=== PATIENT | male | born 1965 | race Caucasian/White ===

== ENCOUNTER → 2018-03-08 | Day surgery (SDC) | payer BC ==
[~2018-03-08] MED LIST: Propofol 200 MG/20 ML SDV IV ONE
[2018-03-08] MEDS: Lactated Ringers 1,000 ML IV SCH (09:13)
--- NOTE | 2018-03-08 13:56 | OR ---
DATE OF OPERATION: 03/08/2018 PREOPERATIVE DIAGNOSIS: SCREENING COLONOSCOPY. POSTOPERATIVE DIAGNOSIS: SCREENING COLONOSCOPY. SURGEON: Ganesh Valentin MD PROCEDURE: FULL-LENGTH COLONOSCOPY WITH SNARE POLYPECTOMY X1, FORCEPS POLYP REMOVAL X1. ANESTHESIA: EQUITIES ANALYST. COMPLICATIONS: None. SPECIMEN: 1. Villous adenoma in cecum. 2. Sessile polyps, sigmoid colon. FINDINGS: 1. Full-length colonoscopy. 2. Marginal prep. 3. Tubulovillous adenoma of cecum. 4. Sessile adenoma, mid sigmoid colon. RECOMMENDATIONS: Follow up colonoscopy in two years pending path report. INDICATIONS: The patient was in for a physical. He has not had a prior colonoscopy. He was sent by Michelle Mancilla PA-C for screening. DESCRIPTION OF PROCEDURE: The patient was prepped and draped, placed in the left lateral decubitus position. A lubricated Olympus colonoscope was inserted and with relative ease, advanced to the cecum. We were able to directly visualize the ileocecal valve and appendiceal orifice. The bowel prep was fine. Just outside the cecal pouch on the backside of the ileocecal valve, the patient had a tubulovillous adenoma, less than 1 cm, but greater than 0.5 cm in size. It was very difficult to get to it. We were able to get a small snare around it and remove it, suction into polyp trap #1 without any complication. Resolution of bleeding was spontaneous. The rest of the ascending and transverse colons appeared benign. No signs of any lesions in the descending colon. The sigmoid area had once a flat sessile polyp around 45 cm, with insufflation and flattened out quite a bit, we were able to remove it, with three cold forceps biopsies. The sigmoid itself and rectosigmoid junction showed no other signs of polyps, mass, ulceration, or bleeding sites. No vascular abnormalities or signs of colitis. There were no significant diverticula. The rectal vault was benign. Retroflexion of scope in the rectum showed no anal lesions. Air was suctioned and scope removed without complication. NICOLE/JABARI /[id number]
== END ==
LOC: CC.SDS 08:41
PROVIDERS: ATTEND Family Medicine
DX: Z12.11 Encounter for screening for malignant neoplasm of colon (principal); D12.0 Benign neoplasm of cecum; D12.5 Benign neoplasm of sigmoid colon; E78.5 Hyperlipidemia, unspecified; I10 Essential (primary) hypertension; E11.9 Type 2 diabetes mellitus without complications; Z79.4 Long term (current) use of insulin; Z79.82 Long term (current) use of aspirin; Z79.899 Other long term (current) drug therapy
CPT/HCPCS: 82962; J2704; J7120

== ENCOUNTER → 2020-04-02 | Day surgery (SDC) | payer BC ==
[~2020-04-02] MED LIST changes: +Ketamine 200 MG/20 ML MDV ONE; +Lactated Ringers 1,000 ML IV SCH; -Propofol 200 MG/20 ML SDV IV ONE; +Propofol 200 MG/20 ML SDV ONE; +fentaNYL 100 MCG/2 ML SDV ONE
--- NOTE | 2020-04-02 09:23 | OR ---
DATE OF OPERATION: 04/02/2020 PREOPERATIVE DIAGNOSIS: HISTORY OF POLYPS. POSTOPERATIVE DIAGNOSIS: HISTORY OF POLYPS. SURGEON: Ganesh Valentin MD PROCEDURE: SURVEILLANCE COLONOSCOPY WITH FORCEPS POLYP REMOVAL X3. ANESTHESIA: MAC. COMPLICATIONS: None. SPECIMEN: Three small sessile polyps, see report. FINDINGS: 1. Full-length colonoscopy. 2. Sessile polyps x3, all 3 to 4 mm or less. RECOMMENDATIONS: Followup colonoscopy in 5 years. INDICATIONS: The patient had a prior colonoscopy 2 years ago, where he had a villous adenoma removed from the cecal region along with another tubular adenoma. We recommended a 2-year followup. DESCRIPTION OF PROCEDURE: The patient was prepped and draped and placed in the left lateral decubitus position. A lubricated Olympus colonoscope was inserted and easily advanced to the cecum. Direct visualization of the ileocecal valve and the appendiceal orifice was accomplished. The bowel prep was marginal. We were able to irrigate and suction most stool from the colon, although the patient had quite a bit. Certainly, smaller lesions possibly could have been missed. Upon withdrawal, the region of the backside of the ileocecal valve showed no sign of any polyp recurrence from his prior snare removal site. The rest of the ascending colon was also benign. In the proximal transverse colon, the patient had a very small flat sessile polyp approximately 3 mm removed in its entirety with 2 cold forceps biopsies. The rest of the transverse colon was benign. No lesions in the descending area. In the mid and distal sigmoid colon, the patient had 2 small polyps, both flat, both removed with forceps biopsies x2 in their entirety, each was approximately 3 to 4 mm. There were no other polyps, masses, ulcerations, bleeding sites, vascular abnormalities, or signs of diverticula. The rectal vault was benign. Retroflexion showed no perianal lesions. Air was suctioned and the scope removed without complication. NICOLE/JABARI /[id number]
== END ==
LOC: CC.SDS 06:50
PROVIDERS: ATTEND Family Medicine
DX: Z12.11 Encounter for screening for malignant neoplasm of colon (principal); D12.3 Benign neoplasm of transverse colon; D12.5 Benign neoplasm of sigmoid colon; E11.9 Type 2 diabetes mellitus without complications; I10 Essential (primary) hypertension; E78.5 Hyperlipidemia, unspecified; E66.9 Obesity, unspecified; Z79.899 Other long term (current) drug therapy; Z68.33 Body mass index [BMI] 33.0-33.9, adult; Z79.4 Long term (current) use of insulin
CPT/HCPCS: J2704; J3010; J7120

== ENCOUNTER 2023-08-31 15:26 | Observation (INO) | payer BC ==
[2023-08-31 15:51] LABS: BASOPHILS ABSOLUTE AUTO 0.04 10^3/uL (0.00-0.50); BASOPHILS PERCENT AUTO 0.5 % (0-1); EOSINOPHILS ABSOLUTE AUTO 0.11 10^3/uL (0.00-1.50); EOSINOPHILS PERCENT AUTO 1.5 % (0-6); HEMATOCRIT 46.7 % (42.0-52.0); HEMOGLOBIN 16.3 g/dL (14.0-18.0); IMMATURE GRAN ABSOLUTE AUTO 0.01 10^3/uL (0.00-0.49); IMMATURE GRAN PERCENT AUTO 0.1 % (0.0-4.9); LYMPHOCYTES ABSOLUTE AUTO 2.12 10^3/uL (0.60-5.00); LYMPHOCYTES PERCENT AUTO 28.1 % (24-44); MEAN CORPUSCULAR HEMOGLOBIN 30.1 pg (27.0-32.0); MEAN CORPUSCULAR HGB CONC 34.9 g/dL (32.0-36.0); MEAN CORPUSCULAR VOLUME 86.3 fL (83.0-97.0); MONOCYTES ABSOLUTE AUTO 0.52 10^3/uL (0.00-1.50); MONOCYTES PERCENT AUTO 6.9 % (0-10); NEUTROPHILS ABSOLUTE AUTO 4.74 x10^3/uL (1.80-8.00); NEUTROPHILS PERCENT AUTO 62.9 % (41-71); PLATELET COUNT,PLT 152 10^3/uL (150-400); RED BLOOD CELL COUNT 5.41 x10^6/uL (4.50-6.00); WHITE BLOOD CELL COUNT,WBC 7.5 10^3/uL (4.0-11.0)
[2023-08-31 16:57] LABS: INR 1.01 (0.92-1.18); PROTHROMBIN TIME 10.6 SEC (9.3-11.3); PTT,PARTIAL THROMBOPLSTIN TIME 24.7 SEC (20.0-30.0)
[2023-08-31] MEDS ORDERED: Ondansetron 4 MG/2 ML SDV IV PRN (16:57)
[2023-08-31] MEDS ORDERED: Sodium Chloride 0.9% 10 ML Syringe FLUSH PRN (16:57)
[2023-08-31] MEDS ORDERED: Morphine 2 MG/ML SYRINGE IVPUSH PRN (16:57)
[2023-08-31] MEDS ORDERED: Nitroglycerin 0.4 MG Tab.SL SL PRN (17:00)
[2023-08-31] MEDS: Aspirin 81 MG Tab.Chew PO ONE (17:15)
[2023-08-31] MEDS: Gabapentin 300 MG Cap PO SCH (21:04)
[2023-08-31] MEDS: INSULIN PUMP SUBCUT SCH (22:24)
[2023-08-31] MEDS ORDERED: Latanoprost 0.005% Ophth Soln 2.5 ML Bottle EYEBOTH SCH (22:30)
[2023-09-01] MEDS ORDERED: Aspirin 81 MG Tab.EC PO SCH (08:00)
[2023-09-01] MEDS ORDERED: Lisinopril 20 MG Tab PO SCH (08:00)
[2023-09-01] MEDS ORDERED: Non-Formulary Medication 1 Each (Fish Oil/Omega-3 Fatty Acids [Fish Oil 1,000 Mg] 1 GM Cap PO SCH (08:00)
[2023-09-01] MEDS ORDERED: Simvastatin 20 MG Tab PO SCH (08:00)
[2023-09-01] MEDS ORDERED: Multivitamin Tab PO SCH (08:00)
[2023-09-01] MEDS ORDERED: Enoxaparin 40 MG/0.4 ML Syringe SUBCUT SCH (12:00)
== END 2023-08-31 23:20 | disposition home or self-care (01) ==
LOC: CC.FCMC 15:26 → CC.MS 15:26 → UNDOADMOB 16:37 → CC.MS 16:57 → UNDODISOB 23:20
PROVIDERS: ADMIT Physician Assistant Medical; ATTEND Nurse Practitioner
DX: I20.89 Other forms of angina pectoris (principal); E11.9 Type 2 diabetes mellitus without complications; I10 Essential (primary) hypertension; E78.00 Pure hypercholesterolemia, unspecified; Z79.4 Long term (current) use of insulin; Z79.899 Other long term (current) drug therapy
CPT/HCPCS: 36415; 71046; 80048; 82550; 84484; 85025; 85610; 85730; 93005; A9270-GY; G0378